=== PATIENT | female | born 1960 | race Caucasian/White ===

== ENCOUNTER 2018-02-01 10:29 | Emergency (ER) | payer BC ==
[~2018-02-01] VITALS: Ht 154.9 cm; Wt 71.4 kg
[2018-02-01] MEDS ORDERED: LEVOTHYROXINE100 MCG PO (10:46)
[2018-02-01] MEDS ORDERED: DEBROX15 ML LEFT EAR (12:25)
[2018-02-01 13:00] VITALS: BP 143/79
== END 2018-02-01 13:01 | disposition home or self-care (01) ==
LOC: EME 10:29
PROC: 09C1XZZ Extirpation of Matter from Left External Ear, External Approach (ICD-10-PCS; principal; 2018-02-01)
DX: H61.22 Impacted cerumen, left ear (principal); Z87.891 Personal history of nicotine dependence; Z88.2 Allergy status to sulfonamides
CPT/HCPCS: 99281; 99284